=== PATIENT | male | born 1975 | race Caucasian/White ===

== ENCOUNTER 2022-09-20 09:36 | Outpatient (CLI) | payer BC | END 2022-09-20 09:37 | disposition home or self-care (01) | LOC: SCSMRI 09:36 | PROVIDERS: ATTEND Student in an Organized Health Care Education/Training Program | DX: H90.5 Unspecified sensorineural hearing loss (principal); R90.89 Other abnormal findings on diagnostic imaging of central nervous system | CPT/HCPCS: 70553 ==